=== PATIENT | female | born 1945 | race Caucasian/White ===

== ENCOUNTER 2018-12-12 12:14 | Emergency (ER) | payer BC ==
[2018-12-12 13:19] VITALS: BP 136/69
--- NOTE | 2018-12-12 14:24 | UC ---
UC General HPI - HPI Summary HPI Summary: States two nights ago, work up with right arm itchiness. Noticed a circular redness on right forearm. Redness has gotten progressively worse, swollen and firm. States it is warm and painful. Intermittently itchy. Thinks she had a bug bite but no known bite. No nausea. No fever. Otherwise feeling well. Meds : Reviewed. - History of Current Complaint Chief Complaint: [employer] Stated Complaint: SKIN COMPLAINT (BITE?) Time Seen by Provider: 12/12/18 13:59 Pain Intensity: 9 - Allergy/Home Medications Allergies/Adverse Reactions: Allergies Allergy/AdvReac Type Severity Reaction Status Date / Time amoxicillin Allergy Blisters Verified 12/12/18 13:07 erythromycin base Allergy Bleeding Verified 12/12/18 13:07 Sulfa (Sulfonamide Allergy Hives Verified 12/12/18 13:07 Antibiotics) Home Medications: Home Medications Calcium Phosphate Trib/Vit D3 [Calcium/Vitamin D3 Gummie 250-350 mg-Unit] 600 mg PO DAILY 12/12/18 [History Confirmed 12/12/18] Methotrexate TAB* 10 mg PO WEEKLY 12/12/18 [History Confirmed 12/12/18] Niacin 250 mg PO DAILY 12/12/18 [History Confirmed 12/12/18] PMH/Surg Hx/FS Hx/Imm Hx Previously Healthy: Yes GI/ History: Gastroesophageal Reflux, Other - crohns - Surgical History Surgical History: Yes Surgery Procedure, Year, and Place: CYSTECTOMY--[facility]--10/2012. HYSTERECTOMY--1995. CHOLECYSTECTOMY-- - Social History Alcohol Use: None Substance Use Type: None Smoking Status (MU): Former Smoker When Did the Patient Quit Smoking/Using Tobacco: 1987 Review of Systems All Other Systems Reviewed And Are Negative: Yes Constitutional: Positive: Negative Musculoskeletal: Positive: Other: - right arm pain, swelling and redness Is Patient Immunocompromised?: Yes Physical Exam Triage Information Reviewed: Yes Appearance: Well-Appearing Vital Signs: Initial Vital Signs Temp 97.8 F 12/12/18 13:13 Pulse 68 12/12/18 13:13 Resp 14 12/12/18 13:13 BP 136/69 12/12/18 13:13 Pulse Ox 98 12/12/18 13:13 Vital Signs Reviewed: Yes Eyes: Positive: Conjunctiva Clear ENT: Positive: Normal ENT inspection Neck: Positive: Supple Respiratory: Positive: Lungs clear, Normal breath sounds Cardiovascular: Positive: RRR, No Murmur Skin: Positive: Other - right forearm erythema over anterior surface measuring approx 8 cm - warm, slightly firm, no induration or fluctuance. Good pulses Course/Dx - Course Course Of Treatment: This is a 73 yr old with right forearm pain and redness. Likely started as a contact dermatitis now with cellulitis. Plan. Recommend hydroxyzine as needed for itching. Warm compresses to area. Recommend starting Clindamycin as prescribed. Monitor rash - if progressively worse, or if fever and feeling unwell, return to urgent care or the ER or call PCP for further evaluation - Diagnoses Provider Diagnosis: Cellulitis, Contact dermatitis Discharge - Sign-Out/Discharge Documenting (check all that apply): Patient Departure All imaging exams completed and their final reports reviewed: No Studies - Discharge Plan Condition: Good Disposition: HOME Prescriptions: Clindamycin HCl 300 mg PO Q6HR #28 capsule hydrOXYzine HCL TAB* [Atarax 25 MG TAB*] 25 mg PO QID PRN #20 tab PRN Reason: Itching Patient Education Materials: Cellulitis (ED) Referrals: Roma Henley MD [Primary Care Provider] - Additional Instructions: Recommend hydroxyzine as needed for itching Warm compresses to area Recommend starting Clindamycin as prescribed Monitor rash - if progressively worse, or if fever and feeling unwell, return to urgent care or the ER or call PCP for further evaluation - Billing Disposition and Condition Condition: GOOD Disposition: Home
== END 2018-12-12 14:31 | disposition home or self-care (01) ==
LOC: UCCORT 12:14
DX: L25.9 Unspecified contact dermatitis, unspecified cause (principal); L03.114 Cellulitis of left upper limb; Z88.0 Allergy status to penicillin; Z88.1 Allergy status to other antibiotic agents; Z88.2 Allergy status to sulfonamides; Z87.891 Personal history of nicotine dependence
CPT/HCPCS: 99202; G0463